=== PATIENT | female | born 2000 | race Caucasian/White ===

== ENCOUNTER 2022-08-07 01:27 | Emergency (ER) | payer BC, SELFPAY ==
[2022-08-07] MEDS: KETOROLAC 30 MG/ML inj IM (01:24)
[2022-08-07 01:32] VITALS: BP 124/66; PULSE 89; RESP 16; TEMP 36.1; O2SAT 99
--- NOTE | 2022-08-07 01:34 | ED_ITS ---
HPI - General Adult General Time Seen by Provider: 00:45 Date Seen: 08/07/22 Chief complaint: Extremity Pain/Injury, Lower Stated complaint: Right Arm Pain Time Seen by Provider: 08/07/22 01:31 CDT Source: patient Mode of arrival: ambulatory Limitations: no limitations History of Present Illness HPI narrative: 22-year-old who comes in with right arm pain. She is right-handed. She has had about a week of right arm pain. It radiates up and down the arm, frequently around the elbow but also down into the hand and up to the upper arm. No neck pain in the neck or shoulder. No known injury. She notices this more night when sleeping. She noticed it with activity. She has been taking Tylenol and ibuprofen. Was seen in clinic and told she had carpal tunnel syndrome. No joint swelling. Related Data Home Medications Medication Instructions Recorded Confirmed norgestimate 0.25 mg-ethinyl 1 tab PO 08/02/22 08/02/22 estradiol 35 mcg tablet (Kenna) Previous Rx's Medication Instructions Recorded gabapentin 300 mg capsule 300 mg PO TID #90 caps 08/07/22 Allergies Allergy/AdvReac Type Severity Reaction Status Date / Time No Known Drug Allergies Allergy Verified 08/02/22 15:09 Review of Systems Status of ROS: Reports: 10 or more systems reviewed and unremarkable except as noted in History and below [facility] Social History Smoking Status: Never smoker Exam Narrative: Exam Narrative: General: Well-developed and well-nourished, no acute distress Head: Atraumatic and normocephalic Eyes: Pupils are equal reactive, extraocular motions intact, conjunctiva clear ENT: External nose and ears are normal, posterior pharynx without erythema or exudate Neck: No midline cervical tenderness, full spontaneous range of motion the neck, trachea midline, no adenopathy Heart: Regular rate and rhythm no murmurs or thrills Lungs: Clear to auscultation bilaterally without wheezes or crackles Abdomen: Soft, nontender, nondistended with active bowel sounds Musculoskeletal: Diffuse tenderness of the right forearm and elbow. Positive Phalen test. Neurologic: Awake, alert, and oriented x3, no gross focal neurologic deficits, cranial nerves intact as tested Psych: Mood and affect are appropriate Skin: No rashes Const: Vital Signs, click to edit/add: Vital Signs - 24 hr 08/07/22 01:32 CDT Temperature 97.0 F L Pulse Rate [Right Pulse Oximeter] 89 Respiratory Rate 16 Blood Pressure [Le ft Upper Arm] 124/66 Pulse Oximetry 99 Oxygen Delivery Me thod Room Air Course Course Hospital Course: Patient seen examined, prior records are reviewed. Patient presents with right forearm, elbow, and upper arm pain. Pain radiates up and down the arm, sometimes tingling, sometimes aching. Worse at night. Positive failing test, strength and sensation otherwise are intact. Symptoms are consistent with carpal tunnel syndrome, could also represent cubital tunnel syndrome. Discussed cock-up splint, patient will be started on steroid and gabapentin, follow-up with orthopedics. Toradol IM given in the emergency department. Vital Signs Vital signs: Initial Vital Signs Temperature 97.0 F L 08/07/22 01:32 CDT Temperature Source Temporal Artery Scan 08/07/22 01:32 CDT Pulse Rate 89 08/07/22 01:32 CDT Pulse Rhythm 08/07/22 01:32 CDT Respiratory Rate 16 08/07/22 01:32 CDT Blood Pressure 124/66 08/07/22 01:32 CDT Blood Pressure Mean 85 08/07/22 01:32 CDT Blood Pressure Position Semi-Fowlers 08/07/22 01:32 CDT Pulse Oximetry 99 08/07/22 01:32 CDT Oxygen Delivery Method 08/07/22 01:32 CDT Vital Signs Temperature 97.0 F L 08/07/22 01:32 CDT Pulse Rate 89 08/07/22 01:32 CDT Respiratory Rate 16 08/07/22 01:32 CDT Blood Pressure 124/66 08/07/22 01:32 CDT Pulse Oximetry 99 08/07/22 01:32 CDT Oxygen Delivery Method 08/07/22 01:32 CDT Temperature 97.0 F L 08/07/22 01:32 CDT Pulse Rate 89 08/07/22 01:32 CDT Respiratory Rate 16 08/07/22 01:32 CDT Blood Pressure 124/66 08/07/22 01:32 CDT Pulse Oximetry 99 08/07/22 01:32 CDT Oxygen Delivery Method 08/07/22 01:32 CDT Medical Decision Making Medical Records Medical records reviewed: Yes I reviewed the patient's medical records Lab Data Lab results reviewed: Yes I reviewed the patient's lab results Discharge Plan Discharge Clinical Impression: Carpal tunnel syndrome Patient Disposition: Home, Self-Care Instructions: Carpal Tunnel Surgery (DC) Additional Instructions: Tylenol ibuprofen as needed for pain. Get a wrist ?cock-up brace to wear night. Contact the [facility] orthopedic clinic ([phone]) for further evaluation and treatment. Activity Level: No Restrictions Discharge Diet: Regular Prescriptions: New gabapentin 300 mg capsule 300 mg PO TID Qty: 90 2RF No Action norgestimate-ethinyl estradiol [Kenna] 0.25-35 mg-mcg tablet 1 tab PO Follow Up/Referrals: Provider,Not a Local [Primary Care Provider] - Tae Hoskins MD [Emergency Provider] - Stand Alone Forms: [facility] Info Instructions
--- OUTSIDE RECORDS SUMMARY | 2022-08-07 01:34 | XMS_ITS | Clinical Summary ---
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 Exceptionalities Teacher Relationship Specialty Start Date End Date Vivi Manriquez MD PCP - General Pediatric 11/04/20 [address] [place] [address] Farhana Car, MAINTENANCE EQUIPMENT OPERATOR Psychiatry Nurse Practitioner 09/23/16
[2022-08-07 01:47] VITALS: PULSE 80; RESP 16; O2SAT 99
== END 2022-08-07 01:49 | disposition home or self-care (01) ==
PROVIDERS: Emergency Provider Family Medicine
DX: F43.9 Reaction to severe stress, unspecified (principal); R41.0 Disorientation, unspecified
CPT/HCPCS: 96372; 99283; J1885

== ENCOUNTER 2022-08-17 14:19 | Emergency (ER) | payer BC, SELFPAY ==
[2022-08-17 14:24] VITALS: BP 103/69; PULSE 63; RESP 16; TEMP 36.3; O2SAT 99
--- NOTE | 2022-08-17 14:51 | ED_ITS ---
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 She reports that with that it has improved, and she is using some hot and cold treatments. She reports that over the last weaker 10 days she has had some word-finding inability. She has been on prednisone for the carpal tunnel. She also reports she is under good deal of stress with moving, with daily stress sores and basically having some much to do. She reports no chest pain, known, focal neurologic complaints, no headaches, no neck stiffness, no chest pain or breathing problem. No COVID symptoms. Related Data Home Medications Medication Instructions Recorded Confirmed norgestimate 0.25 mg-ethinyl 1 tab PO 08/02/22 08/02/22 estradiol 35 mcg tablet (Kenna) Previous Rx's Medication Instructions Recorded gabapentin 300 mg capsule 300 mg PO TID #90 caps 08/07/22 Allergies Allergy/AdvReac Type Severity Reaction Status Date / Time No Known Drug Allergies Allergy Verified 08/02/22 15:09 Review of Systems Status of ROS: Reports: 6 or more systems reviewed and unremarkable except as noted in History and below PFSH PFS Social History Smoking Status: Never smoker Do you use any of these nicotine containing products: None Second hand tobacco smoke exposure: Yes How often do you have a drink containing alcohol: never AUDIT-C Alcohol total score: 0 Non-prescribed substance use: denies use service: No Exam Narrative: Exam Narrative: Objective: Patient reports that generally she is healthy Her BMI is elevated Vital signs unremarkable HEENT is unremarkable no facial asymmetry, pupils react to light extraocular moves intact mouth is clear Neck is supple Pulse regular Abdomen benign by history Extremities without edema, normal strength sensation in lower and upper extremities, 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 Good peripheral perfusion, no swelling or edema in the lower extremities Skin periphery warm and dry, no rashes Const: Vital Signs, click to edit/add: Vital Signs - 24 hr 08/17/22 14:24 Temperature 97.3 F L Pulse Rate [Pulse Oximeter] 63 Respiratory Rate 16 Blood Pressure [Ri ght Upper Arm] 103/69 Pulse Oximetry 99 Oxygen Delivery Me thod Room Air Course Vital Signs Vital signs: Initial Vital Signs Temperature 97.3 F L 08/17/22 14:24 Temperature Source Temporal Artery Scan 08/17/22 14:24 Pulse Rate 63 08/17/22 14:24 Pulse Rhythm 08/17/22 14:24 Respiratory Rate 16 08/17/22 14:24 Blood Pressure 103/69 08/17/22 14:24 Blood Pressure Mean 80 08/17/22 14:24 Blood Pressure Position Sitting 08/17/22 14:24 Pulse Oximetry 99 08/17/22 14:24 Oxygen Delivery Method 08/17/22 14:24 Vital Signs Temperature 97.3 F L 08/17/22 14:24 Pulse Rate 63 08/17/22 14:24 Respiratory Rate 16 08/17/22 14:24 Blood Pressure 103/69 08/17/22 14:24 Pulse Oximetry 99 08/17/22 14:24 Oxygen Delivery Method 08/17/22 14:24 Temperature 97.3 F L 08/17/22 14:24 Pulse Rate 63 08/17/22 14:24 Respiratory Rate 16 08/17/22 14:24 Blood Pressure 103/69 08/17/22 14:24 Pulse Oximetry 99 08/17/22 14:24 Oxygen Delivery Method 08/17/22 14:24 Medical Decision Making MDM Narrative Medical decision making narrative: This very nice patient has a good amount of stress occurring currently with a move, her full-time job. She feels she does have psychosocial support with a good boyfriend that is been helpful. At this point she does not wish braces for her carpal tunnel, I find no focal neurologic changes to suggest any central STUDENT SUPPORT COUNSELOR issue. She has been on prednisone recently which could have some affect but I suspect that stress might be the main occurring factor. I think at a minimum would be reasonable to do some blood work and will check a heme 4, basic 7, TSH, LFT. We will set up an appointment to have the patient see the clinic physician in follow-up in the next few days. Monitor symptoms, return if worsening changes concerns. She was comfortable this and with mutual decision making we thought this was appropriate approach. If she has persistent symptoms or other issues I think STUDENT SUPPORT COUNSELOR imaging would be appropriate, but at this point I do not think that would be helpful given her reassuring history and exam. Addendum: The patient's white count is elevated but I think that is related to her steroid use recently which her last pills today. Other labs look reassuring. Recheck as above Lab Data Labs: Lab Results 08/17/22 08/17/22 08/17/22 Range/Units 15:10 15:10 15:10 WBC 13.28 H (4.50-11.00) K/uL RBC 4.56 (4.00-5.20) m/uL Hgb 12.9 (12.0-16.0) gm/dL Hct 40.3 (33.0-51.0) % MCV 88 (80-100) fL MCH 28 (26-34) pg MCHC 32 (32-36) gm/dL RDW Coeff of Butch 13.0 (11.5-15.5) % Plt Count 372 (140-440) K/uL Neut % (Auto) 66.5 (42.0-72.0) % Lymph % (Auto) 28.3 (20-44) % Terry % (Auto) 4.1 (0.0-11.0) % Eos % (Auto) 0.5 (0.0-7.0) % Baso % (Auto) 0.2 (0.0-3.0) % Neut # (Auto) 8.80 H (1.7-7.0) K/uL Lymph # (Auto) 3.80 H (0.90-2.90) K/uL Terry # (Auto) 0.50 (0.00-0.90) K/UL Eos # (Auto) 0.10 (0.00-0.50) K/uL Baso # (Auto) 0.00 (0.00-0.30) K/uL Abs Immat Gran (auto) 0.10 (0.00-0.30) K/uL Imm/Tot Granulo (auto) 0.4 % Sodium 137 (135-149) mmol/L Potassium 4.0 (3.6-5.1) mmol/L Chloride 106 (96-114) mmol/L Carbon Dioxide 25 (20-32) mmol/L BUN 14 (5-24) mg/dL Creatinine 0.6 (0.5-1.5) mg/dL Estimated GFR 131 ml/min Glucose 92 (60-115) mg/dL Calcium 8.7 (8.4-10.6) mg/dL Total Bilirubin 0.3 (0.1-1.5) mg/dL Direct Bilirubin 0.2 (0.0-0.5) mg/dL AST 19 (12-35) U/L ALT 38 H (4-35) U/L Alkaline Phosphatase 67 (40-150) U/L C-Reactive Protein 1.8 H (0.5-1.0) mg/dL Total Protein 7.4 (6.0-8.3) g/dL Albumin 4.2 (3.3-5.0) g/dL TSH 2.130 (0.270-4.20) uIU/mL Discharge Plan Discharge Clinical Impression: Stress, Acute confusion Patient Disposition: Home, Self-Care Condition: Stable Additional Instructions: Light activity, will call with lab results if any abnormalities, follow up with primary care in the next 7-10 days. Return sooner problems concerns difficulty. Stress reduction techniques such as walking, music, talking to friends. Your follow up appointment to establish primary care is scheduled at the [facility] on 08/29 with a 10:15am arrival time. If you have any questions or need to reschedule, please call [phone]. Activity Level: No Restrictions Discharge Diet: Regular Prescriptions: No Action norgestimate-ethinyl estradiol [Kenna] 0.25-35 mg-mcg tablet 1 tab PO gabapentin 300 mg capsule 300 mg PO TID Qty: 90 2RF Follow Up/Referrals: Provider,Not a Local [Primary Care Provider] - Stand Alone Forms: [facility] Medical Info Instructions
--- OUTSIDE RECORDS SUMMARY | 2022-08-17 14:59 | XMS_ITS | Clinical Summary ---
:2000 Author Organization [facility]ates [place] [address] Care Team Providers Name Role Phone Farhana Car NP Unavailable Unavailable Vivi Manriquez MD Primary Care Provider [phone] Allergies No known active allergies Medications Medication Sig Dispensed Refills Start Date End Date Status valACYclovir (VALTREX) Take for 5 days 30 tablet. 1 10/20/2021 Active 1 gram bid for each tabletIndications: episode Herpes simplex vulvovaginitis hydrOXYzine HCL Take 1-2 Tablets 30 Tablet 2 04/12/2022 Active (ATARAX) 10 mg (10-20 mg) by tabletIndications: mouth every 8 Anxiety and depression hours if needed for Anxiety. valACYclovir (VALTREX) Take 1 Tablet 90 Tablet 3 04/12/2022 Active 500 mg (500 mg) by tabletIndications: mouth once Herpes simplex daily. vulvovaginitis escitalopram oxalate Take 1 Tablet 90 Tablet 1 06/01/2022 Active (Lexapro) 20 mg (20 mg) by mouth tabletIndications: once daily. Anxiety and depression nicotine (NICORETTE) 4 Chew 1 Each (4 310 Each 1 07/12/2022 Active mg gumIndications: mg) every hour Nicotine use disorder while awake as needed for Nicotine Craving. nicotine (NICOTROL) 10 Inhale 10 mg by 168 Each 1 07/12/2022 Active mg inhalerIndications: mouth every hour Nicotine use disorder while awake as needed for Nicotine Craving. Active Problems Problem Noted Date Nicotine use [...] Encounters Date Type Specialty Care Team Description 08/17/2022 Travel 08/17/2022 Nurse Triage Vivi Manriquez Slurred Rosanne Parada MD 07/14/2022 Telephone Flores Russell PA Prior Aut [...] xalate (Lexapro) 10 mg tablet Approved -05/18/23) from Last 3 Months Immunizations Name Administration [...] Assigned at Date Recorded Not on file COVID-19 Exposure Response Date Recorded In the last 10 days, have you been in contact No / Unsure 08/17/2022 10:03 AM ACTION FINISHER with someone who was confirmed or suspected to have Coronavirus/COVID-19? Obstetrics History Para Term AB IAB SAB Ectopic Multiple Living Live Births 0 0 0 0 0 0 0 0 0 0 0 Last Filed Vital Signs Vital Sign Reading Time Taken Comments Blood Pressure 122/74 06/01/2022 7:53 AM CDT Pulse 87 06/01/2022 7:53 AM CDT Temperature 36.8 ??C (98.2 ??F) 11/23/2021 4:09 PM ACTION FINISHER Respiratory Rate 16 11/23/2021 4:09 PM ACTION FINISHER Oxygen Saturation 97% 11/23/2021 4:09 PM ACTION FINISHER Inhaled Oxygen Concentration - - Weight 131.5 kg (289 lb 14.4 oz) 06/01/2022 7:53 AM CDT Height 162.6 cm (5' 4) 06/01/2022 7:53 AM CDT Body Mass Index 49.76 06/01/2022 7:53 AM CDT Plan of Treatment Health Maintenance Due Date Last Done Comments HIV for age 15-65 01/11/2016 COVID-19 vaccine series (3 - 07/09/2021 05/14/2021, [...] procedure are i n the results section. 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 PAP Routine 06/01/2022 8:30 Pap [...] CDT) athologist Signature MITOGEN 10.00 IU/mL 06/03/2022 [facility] 2:20 PM CDT LABORATORY-CENTR AL LABORATORY Specimen Anatomical Collection Method / Collection Time Recei perlita Time (Source) Location / Volume Laterality Blood BLOOD SPECIMEN / Venipuncture / 06/01/2022 8:47 2021 8:49 Unknown Unknown AM CDT AM CDT Flores BERRY CHEMISTRY Performing Organization Address City/[facility]/ZIP [facility] Phon e Number [facility] [place] [address] [place] [address] [place] [address] LABORATORY-CENTRAL 2000 LABORATORY QFT TB2 PERFORMABLE (06/01/2022 8:47 AM CDT) athologist Signature TB2 0.02 IU/mL 06/03/2022 [facility] 2:20 PM CDT LABORATORY-CENTR AL LABORATORY Specimen Anatomical Collection Method / Collection Time Recei perlita Time (Source) Location / Volume Laterality Blood BLOOD SPECIMEN / Venipuncture / 06/01/2022 8:47 2021 8:49 Unknown Unknown AM CDT AM CDT Flores BERRY CHEMISTRY Performing Organization Address City/State/ZIP Code Phon e Number [facility] [address] [place] [address] [place] [address] LABORATORY-CENTRAL 2000 LABORATORY QFT TB1 PERFORMABLE (06/01/2022 8:47 AM CDT) athologist Signature TB1 0.02 IU/mL 06/03/2022 [facility] 2:20 PM CDT LABORATORY-CENTR AL LABORATORY Specimen Anatomical Collection Method / Collection Time Recei perlita Time (Source) Location / Volume Laterality Blood BLOOD SPECIMEN / Venipuncture / 06/01/2022 8:47 2021 8:49 Unknown Unknown AM CDT AM CDT Flores BERRY CHEMISTRY Performing Organization Address City/State/ZIP Code Phon e Number [facility] [address] [place] [address] LABORATORY-CENTRAL 2000 LABORATORY QUANTIFERON TB GOLD PLUS (06/01/2022 8:47 AM CDT) [facility] Method Time Signature QFTP NIL 0.02 06/03/2022 [facility] 3:04 PM CDT LABORATORY-CE NTRAL LABORATORY TB1 0.02 IU/mL 06/03/2022 [facility] 3:04 PM CDT LABORATORY-CE NTRAL LABORATORY TB2 0.02 IU/mL 06/03/2022 [facility] 3:04 PM CDT LABORATORY-CE NTRAL LABORATORY MITOGEN 10.00 IU/mL 06/03/2022 [facility] 3:04 PM CDT LABORATORY-CE NTRAL LABORATORY QFTP TB AG1 - NIL 0.00 06/03/2022 [facility] 3:04 PM CDT LABORATORY-CE NTRAL LABORATORY QFTP TB AG2 - NIL 0.00 06/03/2022 [facility] 3:04 PM CDT LABORATORY-CE NTRAL LABORATORY QFTP MITOGEN - NIL 9.98 06/03/2022 [facility] 3:04 PM CDT LABORATORY-CE NTRAL LABORATORY QFTP QUANTIFERON Negative Negative 06/03/2022 [facility]PRETATION 3:04 PM CDT LABORATORY-CE NTRAL LABORATORY Specimen Anatomical Collection Method / Collection Time Recei perlita Time (Source) Location / Volume Laterality Blood BLOOD SPECIMEN / Venipuncture / 06/01/2022 8:47 2021 8:49 Unknown Unknown AM CDT AM CDT Narrative [facility] LABORATORY-CENTRAL LABORAT ORY - 06/03/2022 3:04 PM [...] Organization Address City/State/ZIP Code Phon e Number [facility] [address] [place] [address] LABORATORY-CENTRAL 2000 LABORATORY 17-OH PROGESTERONE LC/MS (06/01/2022 8:47 AM CDT) P athologist Signature 17 [place] Progest 27 ng/dL 06/05/2022 [facility] 3:07 PM CDT [facility] (CET) Comment: ?A dult Female ? Follicular ?15 - ??70 ? Luteal ?35 - 290 Specimen Anatomical Collection Method / Collection Time Recei perlita Time (Source) Location / Volume Laterality Blood BLOOD SPECIMEN / Venipuncture / 06/01/2022 8:47 2021 8:49 Unknown Unknown AM CDT AM CDT Narrative [facility] (CET) - 06/05/2022 3:07 PM CDT Test(s) [id number] Progesterone LCMS was developed and its performance charac teristics determined by [employer]. It has not been cleared or a pproved by the Food and Drug Administration. Performed at: ??01 - [facility] [address] [place], [place] ??[id number] [address] [employer] Sales Engineer: Aravind Bills MD, Phone: ??[phone] Flores BERRY SEND OUTS Performing Organization Address City/State/ZIP Code Phon e Number [address] 2 7913 ESOTERIC TESTING (CET) TSH WITH REFLEX (06/01/2022 8:47 AM CDT) athologist Signature TSH 3.27 0.35 - 4.94 06/01/2022 [facility] uIU/mL 3:42 PM CDT LABORATORY-CENTR AL LABORATORY Specimen Anatomical Collection Method / Collection Time Recei perlita Time (Source) Location / Volume Laterality Blood BLOOD SPECIMEN / Venipuncture / 06/01/2022 8:47 2021 8:49 Unknown Unknown AM CDT AM CDT N[facility]ative [facility]-C[facility]AL LABORAT ORY - 06/01/2022 3:42 PM CDT In Adults, TSH values between 5.00 and 10.00 uIU/ml do not necessarily indicate the presence of Hyp othyroidism. Correlation with clinical findings such as presence of goiter and/or Thyroperoxidase (TPO) Antibody ma y be helpful. For more information please refer to HECTOR 20 ; 291: [phone]. Flores BERRY CHEMISTRY Performing Organization Address City/State/ZIP Code Phon e Number [facility] [address] [place] [address] LABORATORY-CENTRAL 2000 LABORATORY (ABNORMAL) LIPID PANEL W REFLEX MEASURED LDL (06/01/2022 8:47 AM CDT) [facility] gist Method Time Signature CHOLESTEROL,TOTAL 199 100 - 199 06/01/2022 [facility] mg/dL 3:18 PM CDT LABORATORY-JOHANNA TRAL LABORATORY TRIGLYCERIDES 54 <150 06/01/2022 [facility] mg/dL 3:18 PM CDT LABORATORY-JOHANNA TRAL LABORATORY HDL CHOLESTEROL 36 (L) >40 mg/dL 06/01/2022 [facility] 3:18 PM CDT LABORATORY-JOHAN[facility] TRAL LABORATORY NON-HDL 163 (H) <145 06/01/2022 [facility] CHOLESTEROL mg/dl 3:18 PM CDT LABORATORY-JOHANNA TRAL LABORATORY CHOL/HDL RATIO 5.53 (H) <4.50 06/01/2022 [facility] 3:18 PM CDT LABORATORY-JOHAN[facility] TRAL LABORATORY LDL CHOLESTEROL 152 (H) <=130 06/01/2022 [facility] mg/dL 3:18 PM CDT LABORATORY-JOHANNA TRAL LABORATORY VLDL CHOLESTEROL 11 <=30 06/01/2022 [facility] mg/dL 3:18 PM CDT LABORATORY-JOHANNA TRAL LABORATORY PROVIDER ORDERED RANDOM 06/01/2022 [facility] STATUS 3:18 PM CDT LABORATORY-JOHANNA TRAL LABORATORY Specimen Anatomical Collection Method / Collection Time Recei perlita Time (Source) Location / Volume Laterality Blood BLOOD SPECIMEN / Venipuncture / 06/01/2022 8:47 2021 8:49 Unknown Unknown AM CDT AM CDT Flores BERRY CHEMISTRY Performing Organization Address City/State/ZIP Code Phon e Number [facility] [place] [address] [facility] [place] [place] [address] LABORATORY-CENTRAL 2000 LABORATORY TESTOSTERONE,TOTAL (06/01/2022 8:47 AM CDT) athologist Signature TESTOSTERONE,T 69 ng/dL 06/01/2022 [facility] 3:41 PM CDT LABORATORY-CENT RAL LABORATORY Specimen Anatomical Collection Method / Collection Time Recei perlita Time (Source) Location / Volume Laterality Blood BLOOD SPECIMEN / Venipuncture / 06/01/2022 8:47 2021 8:49 Unknown Unknown AM CDT AM CDT Narrative [facility] LABORATORY-CENTRAL LABORAT ORY - 06/01/2022 3:41 PM CDT Reference Range: Age Range ? Female ? Ma le All Ages ?14-53 ??ng/dL ? 241 -826 ng/dL Flores BERRY CHEMISTRY Performing Organization Address City/State/ZIP Code Phon e Number [facility] [address] [place] [address] LABORATORY-CENTRAL 2000 LABORATORY PROLACTIN (06/01/2022 8:47 AM CDT) P athologist Signature PROLACTIN 16.84 ng/mL 06/02/2022 [facility] 7:44 AM CDT LABORATORY-CENTR AL LABORATORY Specimen Anatomical Collection Method / Collection Time Recei perlita Time (Source) Location / Volume Laterality Blood BLOOD SPECIMEN / Venipuncture / 06/01/2022 8:47 2021 8:49 Unknown Unknown AM CDT AM CDT Narrative [facility] LABORATORY-[facility] - 06/02/2022 7:44 AM CDT Reference Ranges: Age Range ? Female ? Male 0 - 50 Years ?3.34-26.72 ng/mL ? 2.64-13.13 ng/mL 50+ ??Years ?2.74-19.64 ng/ mL ? 2.64-13.13 ng/mL Flores BERRY SEND OUTS Performing Organization Address City/State/ZIP Code Phon e Number [facility] [address] [place] [address] LABORATORY-CENTRAL 2000 LABORATORY FSH (06/01/2022 8:47 AM CDT) P athologist Signature FSH 3.7 mIU/mL 06/01/2022 [facility] 3:42 PM CDT LABORATORY-CENTR AL LABORATORY Specimen Anatomical Collection Method / Collection Time Recei perlita Time (Source) Location / Volume Laterality Blood BLOOD SPECIMEN / Venipuncture / 06/01/2022 8:47 2021 8:49 Unknown Unknown AM CDT AM CDT Narrative [facility] - 06/01/2022 3:42 PM CDT ? Female: ??Follicular ? (3.0-8.1) ?Ovulatory Peak ? (2.6-16.7) ?Luteal ? (1.4-5.5) ?Post Menopausal ?(26.7-133.4) ? Male: ? (1.0-12.0) Flores BERRY CHEMISTRY Performing Organization Address City/State/ZIP Code Phon e Number [facility] [address] [place] [address] LABORATORY-CENTRAL 2000 LABORATORY BASIC METABOLIC PANEL (06/01/2022 8:47 AM CDT) athologist Signature SODIUM 137 135 - 145 06/01/2022 [facility] mmol/L 3:17 PM CDT LABORATORY-[facility] LABORATORY POTASSIUM 3.8 3.5 - 5.0 06/01/2022 [facility] mmol/L 3:17 PM CDT LABORATORY-CENT RAL LABORATORY CHLORIDE 105 98 - 110 06/01/2022 [facility] [place] mmol/L 3:17 PM CDT LABORATORY-CENT RAL LABORATORY CO2,TOTAL 23 21 - 31 06/01/2022 [facility] [place] mmol/L 3:17 PM CDT LABORATORY-CENT RAL LABORATORY ANION GAP 9 5 - 18 06/01/2022 [facility] [place] 3:17 PM CDT LABORATORY-CENT RAL LABORATORY GLUCOSE 85 65 - 100 06/01/2022 [facility] [place] mg/dL 3:17 PM CDT LABORATORY-CENT RAL LABORATORY CALCIUM 9.3 8.5 - 10.5 06/01/2022 [facility] [place] mg/dL 3:17 PM CDT LABORATORY-CENT RAL LABORATORY BUN 8 8 - 25 06/01/2022 [facility] [place] mg/dL 3:17 PM CDT LABORATORY-CENT RAL LABORATORY CREATININE 0.75 0.57 - 06/01/2022 [facility] [place] 1.11 mg/dL 3:17 PM CDT LABORATORY-CENT RAL LABORATORY BUN/CREAT RATIO 11 10 - 20 06/01/2022 [facility] 3:17 PM CDT LABORATORY-CENT RAL LABORATORY eGFR >90 >90 06/01/2022 [facility] [place] mL/min/1.7 3:17 PM CDT LABORATORY-CENT 2 RAL LABORATORY Comment: As of 2021, eGFR is [...] Organization Address City/State/ZIP Code Phon e Number [facility] [place] [address] 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 Case: [id number] ? 06/14/2022 [facility] Authorizing Provider: ??Ivette dickerson, KRISTI Tanner ? Collected: ? 06/01/2022 0830 ? 1:25 PM HEAL TH Ordering Location: ? [facility] ?Received: ?06/01/2022 0842 ? CDT LABOR ATORY-C ? Clinic ? ENTRAL First Screen: ? Gwen Amato ? LABORATORY Rescreen: ?Shira Stiles ? 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 INTERPRETATION NEGATIVE FOR (none) 06/14/2022 [facility] E lectronically /RESULT INTRAEPITHELIAL 1:25 PM HEALTH sign ed by STEVE Stiles OR CDT LABORATORY-C Shira saavedra n MALIGNANCY (NIL) ENTRAL 06/02 at LABORATORY [...] LABORATORY Abnormal Pap No 06/14/2022 [facility] or [facility] Bx in 1:25 PM HEALTH last 5 years CDT LABORATORY-C ENTRAL LABORATORY Menstrual Irregular Periods 06/14/2022 [facility] Status 1:25 PM HEALTH CDT LABORATORY-C ENTRAL LABORATORY [facility] Bx Done No 06/14/2022 [facility] Today 1:25 PM HEALTH CDT LABORATORY-C ENTRAL LABORATORY Additional None given 06/14/2022 [facility] Information 1:25 PM HEALTH CDT LABORATORY-C ENTRAL LABORATORY Comment: Cytology is screened at [facility] Central Laboratory - [address], [place] [address] and [facility] - [address] [place] [address] and [facility] Laboratory - [address] [place] [address] Interpreted at [facility], Central Laboratory - [address], [place] [address] Automated Review Successful 06/14/2022 1:25 PM CDT [facility]-CENTRAL L ABORATORY Comment: Specimen processed successfully by automated employee wellness/fitness coordinator device, ThinPrep Imaging System, [employer] Note The pap test is a 06/14/2022 1:25 PM [facility] screening technique, not CDT [facility] LABORATORY a diagnostic procedure. It is used [...] Organization Address City/State/ZIP Code Phon e Number [facility] [address] [place], [place] [address] [place] [address] LABORATORY-CENTRAL 2000 LABORATORY GC & CHLAMYDIA DNA PCR [[id number]] (06/01/2022 8:30 AM CDT) [facility] gist Method Time Signature CHLAMYDIA PROBE Negative 06/01/2022 [facility] 10:30 PM CDT LABORATORY-JOH[facility] TRAL LABORATORY N GONORRHOEAE Negative 06/01/2022 [facility] PROBE 10:30 PM CDT LABORATORY-JOH[facility] TRAL LABORATORY Specimen Anatomical Collection Method Collection Time Receive d Time (Source) Location / / Volume Laterality Other VAGINAL SWAB / Non-Blood / 06/01/2022 8:30 AM 022 8:55 Unknown Unknown CDT AM CDT Flores BERRY MICROBIOLOGY Performing Organization Address City/State/ZIP Code Phon e Number [facility] [address] [facility] [place] [address] LABORATORY-CENTRAL 2000 LABORATORY from Last 3 Months Insurance Payer Benefit Plan / Subscriber ID Effective Dates Phone Addre ss Type Group [employer] [id number] 2015-Present [address] [place] [address] [employer] [place] [place] [employer] [id number] 2018-Present [address] [address] [place] [address] SHYANN DOBSON Personal/Famil Mother [phone]Home) [place] [id number] Bakari Dobson Personal/Famil Self 2000 [address] (Home) [place] [address] Advance Directives Latest Code Status on File Code Status Date Activated Date Inactivated Comments Full Code 08/26/2015 5:03 PM 08/31/2015 9:04 PM Full Code 08/03/2015 9:26 PM 08/10/2015 7:06 PM Full Code 06/14/2015 10:57 PM 06/18/2015 6:22 PM Full Code 01/05/2015 8:37 PM 01/09/2015 4:37 PM Care Teams Clinical Informatics Strategist Relationship Specialty Start Date End Date Vivi Manriquez MD PCP - General Pediatric 11/04/20 [address] [place] [address] Farhana Car, ANTHROPOLOGY FACULTY MEMBER Psychiatry Nurse Practitioner 09/23/16
[2022-08-17 15:17] LABS: Basophils Percent Auto 0.2 % (0.0-3.0); Eosinophils Percent Auto 0.5 % (0.0-7.0); Hematocrit 40.3 % (33.0-51.0); Hemoglobin* 12.9 gm/dL (12.0-16.0); Immature Granulocytes Pct Auto 0.4 %; Lymphocytes Percent Auto 28.3 % (20-44); Mean Corpuscular HGB Conc 32 gm/dL (32-36); Mean Corpuscular Hemoglobin 28 pg (26-34); Mean Corpuscular Volume 88 fL (80-100); Monocytes Percent Auto 4.1 % (0.0-11.0); Neutrophils Percent Auto 66.5 % (42.0-72.0); Platelet Count* 372 K/uL (140-440); Red Blood Count 4.56 m/uL (4.00-5.20); White Blood Count* 13.28 K/uL (4.50-11.00)
[2022-08-17 15:28] LABS: Slide Review Reflex No
[2022-08-17 15:29] LABS: Chloride* 106 mmol/L (96-114)
[2022-08-17 15:30] LABS: Albumin* 4.2 g/dL (3.3-5.0); Sodium* 137 mmol/L (135-149)
[2022-08-17 15:32] LABS: Creatinine* 0.6 mg/dL (0.5-1.5); Estimated Glomerular Filt Rate 131 ml/min
[2022-08-17 15:33] LABS: Alanine Aminotransferase* 38 U/L (4-35); Alkaline Phosphatase* 67 U/L (40-150); Aspartate Amino Transferase* 19 U/L (12-35); Bilirubin Direct* 0.2 mg/dL (0.0-0.5); Bilirubin Total* 0.3 mg/dL (0.1-1.5); Blood Urea Nitrogen* 14 mg/dL (5-24); Calcium* 8.7 mg/dL (8.4-10.6); Carbon Dioxide* 25 mmol/L (20-32); Glucose* 92 mg/dL (60-115); Total Protein* 7.4 g/dL (6.0-8.3)
[2022-08-17 15:36] LABS: C Reactive Protein* 1.8 mg/dL (0.5-1.0)
== END 2022-08-17 15:13 | disposition home or self-care (01) ==
PROVIDERS: Emergency Provider Family Medicine
DX: R41.0 Disorientation, unspecified (principal); F43.9 Reaction to severe stress, unspecified
CPT/HCPCS: 36415; 80048; 80076; 84443; 85025; 86140; 99283

== ENCOUNTER 2023-07-17 17:09 | Outpatient (REF) | payer BC, SELFPAY | END 2023-07-17 17:10 | disposition home or self-care (01) | LOC: LAB 17:09 | PROVIDERS: PCP Family Medicine; Visit Provider Emergency Medicine | DX: Z11.1 Encounter for screening for respiratory tuberculosis (principal) | CPT/HCPCS: 36415; 86480 ==

== ENCOUNTER 2023-09-28 13:29 | Emergency (ER) | payer BC, SELFPAY ==
[2023-09-28 13:39] VITALS: BP 151/95; PULSE 106; RESP 20; TEMP 37.7; O2SAT 97; BMI 49.6
[2023-09-28] MEDS: ONDANSETRON ODT 4 MG TAB PO (15:15)
[2023-09-28 15:22] LABS: Creatinine, Point-of-Care* 0.7 mg/dl (0.6-1.3)
--- NOTE | 2023-09-28 15:28 | ED_ITS ---
HPI - General Adult General Date Seen: 09/28/23 Chief complaint: Fever Stated complaint: Chills, body aches Time Seen by Provider: 09/28/23 13:38 Source: patient Mode of arrival: ambulatory Limitations: no limitations History of Present Illness HPI narrative: Patient is a 23-year-old female presenting to the emergency department for COVID. She states she has been having some mild shortness of breath along with a fever, cough, congestion and muscle aches for the past day. She did a home COVID test that was positive. She came to the emergency department the see if there is any medication she can get for it. She denies weakness, numbness, headache, vision changes, diarrhea, constipation. Has had some nausea but has not vomited. Has been able to eat and drink today. No other concerns noted Related Data Home Medications Medication Instructions Recorded Confirmed norgestimate 0.25 mg-ethinyl 1 tab PO 08/02/22 08/02/22 estradiol 35 mcg tablet (Kenna) Previous Rx's Medication Instructions Recorded gabapentin 300 mg capsule 300 mg PO TID #90 caps 08/07/22 nirmatrelvir 300 mg (150 mg See Rx Instructions PO .COMPLEX 09/28/23 x2)-ritonavir 100 mg tablet,dose #30 ea pack (Paxlovid) ondansetron 4 mg disintegrating 4 mg PO Q6H #20 tabs 09/28/23 tablet Allergies Allergy/AdvReac Type Severity Reaction Status Date / Time No Known Drug Allergies Allergy Verified 09/28/23 13:39 Review of Systems Status of ROS: Reports: 10 or more systems reviewed and unremarkable except as noted in History and below PFSH PFSH Social History Smoking Status: Never smoker Do you use any of these nicotine containing products: Vaping Products Second hand tobacco smoke exposure: Yes How often do you have a drink containing alcohol: never AUDIT-C Alcohol total score: 0 Non-prescribed substance use: denies use service: No Exam Narrative: Exam Narrative: Const: Well-nourished, Well-developed, in mild distress Eyes: PERRL, no conjunctival injection, and symmetrical lids HENT: Atraumatic external nose and ears. Moist mucous membranes. Neck: Symmetric, trachea midline, No thyromegaly. CVS: RRR, No murmurs or gallops. Peripheral pulses 2+ and equal in all extremities RESP: Unlabored respiratory effort. Clear to auscultation bilaterally. GI: Nontender/Nondistended, No rebound or guarding. MSK:Extremities w/o deformity, Normal Active ROM Skin: Warm, Dry. No rashes or lesions. Neuro: Normal Muscle tone, No focal neurological deficits. Psych: Awake, Alert, & Oriented x3. Appropriate mood and affect. Const: Vital Signs, click to edit/add: Vital Signs - 24 hr 09/28/23 13:39 Temperature 99.9 F H Pulse Rate [Pulse Oximeter] 106 H Respiratory Rate 20 Blood Pressure [Ri ght Upper Arm] 151/95 H Pulse Oximetry 97 Oxygen Delivery Me thod Room Air Course Vital Signs Vital signs: Initial Vital Signs Temperature 99.9 F H 09/28/23 13:39 Temperature Source Temporal Artery Scan 09/28/23 13:39 Pulse Rate 106 H 09/28/23 13:39 Respiratory Rate 20 09/28/23 13:39 Blood Pressure 151/95 H 09/28/23 13:39 Blood Pressure Mean 113 H 09/28/23 13:39 Blood Pressure Position Sitting 09/28/23 13:39 Pulse Oximetry 97 09/28/23 13:39 Oxygen Delivery Method Room Air 09/28/23 13:39 Vital Signs Temperature 99.9 F H 09/28/23 13:39 Pulse Rate 106 H 09/28/23 13:39 Respiratory Rate 20 09/28/23 13:39 Blood Pressure 151/95 H 09/28/23 13:39 Pulse Oximetry 97 09/28/23 13:39 Oxygen Delivery Method Room Air 09/28/23 13:39 Temperature 99.9 F H 09/28/23 13:39 Pulse Rate 106 H 09/28/23 13:39 Respiratory Rate 20 09/28/23 13:39 Blood Pressure 151/95 H 09/28/23 13:39 Pulse Oximetry 97 09/28/23 13:39 Oxygen Delivery Method Room Air 09/28/23 13:39 Medications Administered Medications: Discontinued Medications Generic Name Dose Route Start Last Admin Trade Name Freq PRN Reason Stop Dose Admin Ondansetron HCl 4 mg 09/28/23 14:57 09/28/23 15:15 Ondansetron Odt 4 Mg Tab PO 09/28/23 14:58 4 mg ONCE ONE Administration Medical Decision Making MDM Narrative Medical decision making narrative: Patient is a 23-year-old female presents to emergency department for COVID. She is obese and does meet criteria for Paxlovid due to that. She states she is not currently taking any medications. Zofran was given for her nausea. No other medical issues by did check a point of care creatinine to make sure the Paxlovid does not need to be dose adjusted. Creatinine was 0.7 and she will be given Zofran and Paxlovid. She is otherwise doing well and I not believe any further imaging or lab work is necessary. These unlikely to have bacterial pneumonia or pneumothorax. Is low risk for ACS. Symptoms are most likely from her COVID. She will be discharged home. Lab Data Labs: Lab Results 09/28/23 Range/Units 15:15 POC Creatinine 0.7 (0.6-1.3) mg/dl Discharge Plan Discharge Clinical Impression: COVID Patient Disposition: Home, Self-Care Condition: Stable Instructions: COVID-19 (Coronavirus Disease 2019) (ED) Additional Instructions: Take the Zofran as needed for nausea. Use the Paxlovid as directed. Prescriptions: New ondansetron 4 mg tablet,disintegrating 4 mg PO Q6H Qty: 20 0RF Paxlovid 300 mg (150 mg x 2)-100 mg tablets,dose pack See Rx Instructions .ROUTE .COMPLEX Qty: 30 0RF Rx Instructions: take TWO 150 mg tablets of nirmatrelvir with ONE 100 mg tablet of ritonavir twice daily for 5 days No Action norgestimate-ethinyl estradiol [Kenna] 0.25-35 mg-mcg tablet 1 tab PO gabapentin 300 mg capsule 300 mg PO TID Qty: 90 2RF Follow Up/Referrals: Quinn Garcia MD [Primary Care Provider] - Stand Alone Forms: [employer] Info Instructions
== END 2023-09-28 15:30 | disposition home or self-care (01) ==
PROVIDERS: Emergency Provider Student in an Organized Health Care Education/Training Program; PCP Family Medicine
DX: U07.1 COVID-19 (principal)
CPT/HCPCS: 82565; 99283; A9270